=== PATIENT | female | born 1955 | race Caucasian/White ===

== ENCOUNTER → 2016-11-01 | Outpatient (REF) | payer BC | LOC: M LABDRAW1 13:23 | PROVIDERS: ATTEND Internal Medicine Endocrinology, Diabetes & Metabolism | DX: C73 Malignant neoplasm of thyroid gland (principal) ==

== ENCOUNTER → 2018-12-24 | Outpatient (CLI) | payer BC ==
[~2018-12-24] MED LIST: ISOVUE-370 76% 125ML VIAL (Q9967 PER ML) As Ordered ONE
--- NOTE | 2018-12-24 13:01 | REP ---
Soft-tissue neck CT with IV contrast: History: Malignant neoplasm of the thyroid gland. Thyroid cancer status post thyroidectomy. Lymphadenopathy at present. No comparison imaging. CT contrast dose: 75 mL of intravenous Isovue [address] findings: Thyroid gland is surgically absent. There is no evidence of adenopathy or mass in the infrahyoid or suprahyoid neck soft tissues. There are scattered normal-sized anterior and posterior cervical lymph nodes. No vascular abnormality is observed. Submandibular and parotid glands are normal and symmetric. Visualized paranasal sinuses are clear. Tonsillar and peritonsillar soft tissues are unremarkable. Normal epiglottis is seen. Glottic and subglottic airway are unremarkable. The lung apices are clear. No bony destructive lesion is seen. Impression: Status post thyroidectomy. No neck mass or adenopathy seen. Electronically Signed by Vinny Solano MD 12/24/2018 01:38 P
== END ==
LOC: M RAD 11:13
PROVIDERS: ATTEND Internal Medicine Endocrinology, Diabetes & Metabolism
DX: C73 Malignant neoplasm of thyroid gland (principal); E89.0 Postprocedural hypothyroidism
CPT/HCPCS: 70491; Q9967

== ENCOUNTER → 2022-10-08 | Outpatient (CLI) | payer BC ==
[2022-10-08 15:39] LABS: THYROID STIMULATING HORMONE 0.989 uIU/ML (0.55-4.78)
[2022-10-08 15:43] LABS: FREE T4 1.59 NG/DL (0.89-1.76)
[2022-10-10 11:08] LABS: THRYOGLOBULIN ANTIBODIES (ATA) < 1.0 IU/mL (0.0-0.9); THYROGLOBULIN QUANTITATIVE < 0.1 ng/mL (1.5-38.5)
== END ==
LOC: M PLALAB 13:37
PROVIDERS: ATTEND Nurse Practitioner Family
DX: E89.0 Postprocedural hypothyroidism (principal); Z85.850 Personal history of malignant neoplasm of thyroid

== ENCOUNTER → 2023-12-16 | Outpatient (CLI) | payer BC, MEDICARE ==
[~2023-12-16] MED LIST changes: +CIDE1TAB PO; +CLOB5CR TOP; +CLON1TAB8; +CRAN400C PO; +CVS1CHW13 PO; +CVS5000S2 SL; +CYCL-707; +D3 H2000 PO; +DIPH50CA29; +ESOM40CA35; +HYDR-3363 PO; +HYDR-4514; +HYDR12.55; -ISOVUE-370 76% 125ML VIAL (Q9967 PER ML) As Ordered ONE; +LEVOTAB10 PO; +LORA-1041; +MECL-136 PO; +MELO15TA28; +MULT-90 PO; +POTA10CA60; +ROSU10TA6; +SUPE5000 PO; +SYMB16INH; +TRIA1CR80 TOP; +VIAC1CHW PO
== END ==
LOC: M ONCR 14:16
PROVIDERS: ATTEND General Practice
DX: C50.412 Malignant neoplasm of upper-outer quadrant of left female breast (principal); Z71.2 Person consulting for explanation of examination or test findings; Z98.890 Other specified postprocedural states; Z85.850 Personal history of malignant neoplasm of thyroid; Z85.820 Personal history of malignant melanoma of skin; Z98.51 Tubal ligation status; Z80.7 Family history of other malignant neoplasms of lymphoid, hematopoietic and related tissues; Z90.89 Acquired absence of other organs; Z88.4 Allergy status to anesthetic agent; Z88.1 Allergy status to other antibiotic agents; Z88.8 Allergy status to other drugs, medicaments and biological substances; Z79.51 Long term (current) use of inhaled steroids; Z79.1 Long term (current) use of non-steroidal anti-inflammatories (NSAID); Z79.899 Other long term (current) drug therapy

== ENCOUNTER 2023-12-26 13:07 | Outpatient (RCR) | payer BC | END 2024-01-04 | LOC: M ONCR 13:07 | PROVIDERS: ATTEND General Practice | DX: Z51.0 Encounter for antineoplastic radiation therapy (principal); C50.512 Malignant neoplasm of lower-outer quadrant of left female breast ==

== ENCOUNTER 2024-01-09 13:04 | Outpatient (RCR) | payer BC ==
[~2024-01-09 13:04] MED LIST changes: +ALEN70TA82 PO; +LETR2.5T2 PO; -POTA10CA60; +POTA10CA70; -ROSU10TA6; +ROSU10TA61
== END 2024-02-03 ==
LOC: M ONCR 13:04
PROVIDERS: ATTEND General Practice
DX: Z51.0 Encounter for antineoplastic radiation therapy (principal); C50.512 Malignant neoplasm of lower-outer quadrant of left female breast

== ENCOUNTER → 2024-07-13 | Outpatient (CLI) | payer BC ==
[~2024-07-13] MED LIST changes: +ALBU8.5H INH; +ARTIDRO4 OP; -CRAN400C PO; +CRANBERRY400 MG PO; +EFFE150C3 PO; +ESTR62CR PV; +FLON1SPR NARES; +LEVO-86 PO; +SYMB16INH INH
== END ==
LOC: M ONCR 13:40
PROVIDERS: ATTEND General Practice
DX: Z08 Encounter for follow-up examination after completed treatment for malignant neoplasm (principal); C50.412 Malignant neoplasm of upper-outer quadrant of left female breast; R23.2 Flushing; R45.89 Other symptoms and signs involving emotional state; Z79.811 Long term (current) use of aromatase inhibitors; Z79.899 Other long term (current) drug therapy; Z85.850 Personal history of malignant neoplasm of thyroid; Z88.1 Allergy status to other antibiotic agents; Z88.8 Allergy status to other drugs, medicaments and biological substances; Z88.4 Allergy status to anesthetic agent

== ENCOUNTER → 2024-11-30 | Outpatient (CLI) | payer BC ==
[~2024-11-30] MED LIST changes: +ISOVUE-370 76% 100ML VIAL As Ordered ONE; +MAGN100T PO
== END ==
LOC: M RAD 12:18
PROVIDERS: ATTEND Nurse Practitioner Women's Health
DX: C50.919 Malignant neoplasm of unspecified site of unspecified female breast (principal); D72.820 Lymphocytosis (symptomatic); R10.10 Upper abdominal pain, unspecified; R91.8 Other nonspecific abnormal finding of lung field
CPT/HCPCS: 71260; 74177; Q9967

== ENCOUNTER → 2025-01-12 | Outpatient (CLI) | payer BC ==
[~2025-01-12] MED LIST changes: +ENOX40IN3 SC; -ISOVUE-370 76% 100ML VIAL As Ordered ONE
== END ==
LOC: M ONCR 13:03
PROVIDERS: ATTEND General Practice
DX: Z08 Encounter for follow-up examination after completed treatment for malignant neoplasm (principal); Z85.3 Personal history of malignant neoplasm of breast; Z85.850 Personal history of malignant neoplasm of thyroid; Z98.890 Other specified postprocedural states; Z92.3 Personal history of irradiation; Z79.1 Long term (current) use of non-steroidal anti-inflammatories (NSAID); Z79.51 Long term (current) use of inhaled steroids; Z79.811 Long term (current) use of aromatase inhibitors; Z79.899 Other long term (current) drug therapy; Z88.4 Allergy status to anesthetic agent; Z88.1 Allergy status to other antibiotic agents; Z88.8 Allergy status to other drugs, medicaments and biological substances

== ENCOUNTER 2025-02-14 10:21 | Day surgery (SDC) | payer BC ==
[~2025-02-14] VITALS: Ht 165.1 cm; Wt 67.8 kg
[~2025-02-14 10:21] MED LIST changes: +ASCO100013 PO; +CRAN1260 PO; +VITA400C80 PO; +VITA500065 PO
[2025-02-14] MEDS ORDERED: fentaNYL 100 MCG/2 ML INJECTION As Ordered ONE (13:07)
[2025-02-14] MEDS ORDERED: propofoL 200 MG/20 ML VIAL As Ordered ONE (13:07)
[2025-02-14] MEDS ORDERED: LIDOCAINE 2% 100MG/5ML SDV (FOR ANES.) As Ordered ONE (13:07)
[2025-02-14] MEDS ORDERED: ePHEDrine SULFATE 25 MG/5 ML(5MG/ML) SYRINGE As Ordered ONE (13:57)
[2025-02-14 14:05] VITALS: TEMP 97.3
[2025-02-14] MEDS ORDERED: PHENYLephrine 500MCG 5ML (100MCG/ML) SYRINGE As Ordered ONE (14:07)
[2025-02-14 14:30] VITALS: BP 115/94; O2SAT 99
== END 2025-02-14 14:34 | disposition home or self-care (01) ==
LOC: M OPP 10:21
PROVIDERS: ATTEND Internal Medicine Gastroenterology
DX: Z12.11 Encounter for screening for malignant neoplasm of colon (principal); D12.0 Benign neoplasm of cecum; K57.30 Diverticulosis of large intestine without perforation or abscess without bleeding; K64.0 First degree hemorrhoids; K20.90 Esophagitis, unspecified without bleeding; K31.7 Polyp of stomach and duodenum; K31.89 Other diseases of stomach and duodenum; Z86.0100 Personal history of colon polyps, unspecified; R12 Heartburn; R10.31 Right lower quadrant pain; Z90.49 Acquired absence of other specified parts of digestive tract; E89.0 Postprocedural hypothyroidism; J45.909 Unspecified asthma, uncomplicated; Z85.3 Personal history of malignant neoplasm of breast; Z85.828 Personal history of other malignant neoplasm of skin; Z79.890 Hormone replacement therapy; Z79.51 Long term (current) use of inhaled steroids; Z79.899 Other long term (current) drug therapy; Z91.048 Other nonmedicinal substance allergy status; Z85.820 Personal history of malignant melanoma of skin; Z92.3 Personal history of irradiation; Z88.1 Allergy status to other antibiotic agents; Z88.4 Allergy status to anesthetic agent; Z92.21 Personal history of antineoplastic chemotherapy; Z88.8 Allergy status to other drugs, medicaments and biological substances
CPT/HCPCS: 43239; 45385; 88305; J2371; J3010

== ENCOUNTER 2025-06-20 11:55 | Day surgery (SDC) | payer BC ==
[~2025-06-20] VITALS: Ht 165.1 cm; Wt 74.5 kg
[2025-06-20] MEDS: LIDOCAINE 1% SDV 5 ML VIAL As Ordered ONE (07:09)
[~2025-06-20 11:55] MED LIST changes: +ALEN70SO2 PO; +B-12100010 PO; -CLON1TAB8; +CLON1TAB8 PO; -CYCL-707; +CYCL-707 PO; +DERM0.014 OTIC; -DIPH50CA29; +DIPH50CA29 PO; -ESOM40CA35; +ESOM40CA35 PO; -HYDR-4514; +HYDR-4514 PO; -HYDR12.55; +HYDR12.55 PO; -LORA-1041; +LORA-1041 PO; +LR 1,000 ML IV SCH; -MELO15TA28; +MELO15TA28 PO; -POTA10CA70; +POTA10CA70 PO; +PROBCAP14 PO; +PX F0.52 PO; +ROPI0.5T33 PO; -ROSU10TA61; +ROSU10TA61 PO; +SIME80TA16 PO; +SYMB80INH INH; +SYST1SOL4 OP; +[UNRECOGNIZED DRUG - OTHER]
[2025-06-20] MEDS ORDERED: MIDAZOLAM INJ 2 MG/2 ML VIAL As Ordered ONE (12:25)
[2025-06-20] MEDS: CYCLOPENTOLATE 1% OPHTH SOLN 2 ML BTL OD SCH (13:34)
[2025-06-20] MEDS: PHENYLEPHRINE 2.5% OPHTH SOL 2ML OD SCH (13:34)
[2025-06-20] MEDS: FLURBIPROFEN 0.03% OPHTH SOLN 2.5 ML OD SCH (13:34)
[2025-06-20] MEDS: TETRACAINE 0.5% OPHTH SOLN 4ML OD SCH (13:47)
[2025-06-20] MEDS: CEFUROXIME 1 MG/0.1 ML INTRACAMERAL INJ As Ordered ONE (14:33)
[2025-06-20 14:55] VITALS: BP 124/60; TEMP 98.1; O2SAT 99
== END 2025-06-20 15:11 | disposition home or self-care (01) ==
LOC: M SDC 11:55
PROVIDERS: ATTEND Ophthalmology
DX: H25.11 Age-related nuclear cataract, right eye (principal); E89.0 Postprocedural hypothyroidism; E78.00 Pure hypercholesterolemia, unspecified; J45.909 Unspecified asthma, uncomplicated; Z79.1 Long term (current) use of non-steroidal anti-inflammatories (NSAID); Z79.899 Other long term (current) drug therapy; Z85.828 Personal history of other malignant neoplasm of skin; K21.9 Gastro-esophageal reflux disease without esophagitis; Z85.858 Personal history of malignant neoplasm of other endocrine glands; Z90.49 Acquired absence of other specified parts of digestive tract; Z88.8 Allergy status to other drugs, medicaments and biological substances; Z88.1 Allergy status to other antibiotic agents
CPT/HCPCS: 66984; J2250; J3010; V2788

== ENCOUNTER 2025-08-22 08:49 | Day surgery (SDC) | payer BC ==
[~2025-08-22] VITALS: Ht 165.1 cm; Wt 77.1 kg
[~2025-08-22 08:49] MED LIST changes: +BIOT5TAB5 PO; -ROSU10TA61 PO; +ROSU10TA90 PO; -SUPE5000 PO
[2025-08-22] MEDS ORDERED: MIDAZOLAM INJ 2 MG/2 ML VIAL As Ordered ONE (09:11)
[2025-08-22] MEDS: CYCLOPENTOLATE 1% OPHTH SOLN 2 ML BTL OS SCH (11:21)
[2025-08-22] MEDS: PHENYLEPHRINE 2.5% OPHTH SOL 2ML OS SCH (11:21)
[2025-08-22] MEDS: FLURBIPROFEN 0.03% OPHTH SOLN 2.5 ML OS SCH (11:21)
[2025-08-22] MEDS: TETRACAINE 0.5% OPHTH SOLN 4ML OS SCH (11:22)
[2025-08-22] MEDS ORDERED: ONDANSETRON 4MG/2ML VIAL As Ordered ONE (12:38)
[2025-08-22] MEDS: LIDOCAINE 1% SDV 5 ML VIAL As Ordered ONE (12:43)
[2025-08-22] MEDS: CEFUROXIME 1 MG/0.1 ML INTRACAMERAL INJ As Ordered ONE (12:44)
[2025-08-22 13:05] VITALS: BP 120/59; TEMP 97.7; O2SAT 99
== END 2025-08-22 13:26 | disposition home or self-care (01) ==
LOC: M SDC 08:49
PROVIDERS: ATTEND Ophthalmology
DX: H25.12 Age-related nuclear cataract, left eye (principal); E78.00 Pure hypercholesterolemia, unspecified; E89.0 Postprocedural hypothyroidism; J45.909 Unspecified asthma, uncomplicated; Z79.899 Other long term (current) drug therapy; Z92.21 Personal history of antineoplastic chemotherapy; Z90.49 Acquired absence of other specified parts of digestive tract; Z85.828 Personal history of other malignant neoplasm of skin; Z85.858 Personal history of malignant neoplasm of other endocrine glands; Z98.41 Cataract extraction status, right eye; Z85.3 Personal history of malignant neoplasm of breast; Z91.048 Other nonmedicinal substance allergy status; Z88.8 Allergy status to other drugs, medicaments and biological substances; Z88.1 Allergy status to other antibiotic agents; Z92.3 Personal history of irradiation; Z79.890 Hormone replacement therapy
CPT/HCPCS: 66984; J0697; J2250; J2405; J3010; V2788

== ENCOUNTER → 2025-09-28 | Outpatient (CLI) | payer BC ==
[~2025-09-28] MED LIST changes: +LEVO100T5; -LR 1,000 ML IV SCH; +OXYB5TAB14 PO
== END ==
LOC: M RAD 07:36
PROVIDERS: ATTEND Internal Medicine Medical Oncology
DX: C50.919 Malignant neoplasm of unspecified site of unspecified female breast (principal)
CPT/HCPCS: 78306; A9503